=== PATIENT | male | born 1970 | race Caucasian/White ===

== ENCOUNTER 2021-10-05 12:35 | Emergency (ER) | payer BC ==
[2021-10-05] MEDS ORDERED: Lactated Ringer's 1,000 ML ONE (13:09)
[2021-10-05] MEDS ORDERED: Acetaminophen 500 MG TAB ONE (13:09)
[2021-10-05 13:34] LABS: #Basophils 0.1 thou/uL (0.0-0.2); #Lymphocytes 0.3 thou/uL (1.20-3.40); #Monocytes 0.4 thou/uL (0.11-0.59); #Neutrophils 12.3 thou/uL (1.40-6.50); %Eosinophils 0.2 % (0.0-10.0); %Lymphocytes 2.1 % (21.0-51.0); %Monocytes 3.4 % (0.0-10.0); %Neutrophils 93.3 % (42.0-75.0); Hemoglobin 18.7 g/dL (14.0-18.0); Mean Corpuscular HGB CONC 32.6 g/dL (32.0-36.0); Mean Corpuscular Volume 92.1 fL (78.0-98.0); Mean Platelet Volume 6.8 fL (7.4-10.4); Platelet Count 311 thou/uL (130-400); RBC Distribution Width 11.8 % (11.5-14.5); Red Blood Cell (RBC) Count 6.24 mill/uL (4.70-6.10); White Blood Cell (WBC) Count 13.1 thou/uL (4.8-10.8)
[2021-10-05 13:48] LABS: ALT (SGPT) 100 U/L (8-55); AST (SGOT) 66 U/L (5-34); Albumin 4.5 g/dL (3.5-5.0); Alkaline Phosphatase 100 U/L (40-110); Anion Gap 17 mmol/L (10-20); BUN (Urea Nitrogen) 19 mg/dL (8.4-25.7); Bilirubin, Total 1.2 mg/dL (0.2-1.2); Calc. Creatinine Clearance 0 mL/min (70-130); Calcium 8.9 mg/dL (7.8-10.44); Carbon Dioxide 18 mmol/L (22-29); Chloride 104 mmol/L (98-107); Globulin 2.8 g/dL (2.4-3.5); Glucose 106 mg/dL (70-105); Lipase 15 U/L (8-78); Magnesium 1.5 mg/dL (1.6-2.6); Potassium 4.7 mmol/L (3.5-5.1); Protein, Total 7.3 g/dL (6.0-8.3); Sodium 134 mmol/L (136-145)
[2021-10-05] MEDS ORDERED: Morphine 4 MG/ML VIAL ONE (13:53)
[2021-10-05] MEDS ORDERED: Magnesium 2 GM/50 ML BAG (IN WATER) ONE (13:53)
[2021-10-05 15:15] LABS: Bilirubin Negative (Negative); Blood, Urine Negative (Negative); Clarity Clear (Clear); Glucose, Urine (Dipstick) Negative (Negative); Ketone, Urine Negative (Negative); Leukocyte Negative (Negative); Nitrite Negative (Negative); Protein, Urine (Dipstick) Negative (Neg-Trace); Urobilinogen 0.2 mg/dL (Less than 2)
== END 2021-10-05 17:16 | disposition home or self-care (01) ==
LOC: MADERS 12:35
DX: M54.50 Low back pain, unspecified (principal); E86.0 Dehydration; K76.0 Fatty (change of) liver, not elsewhere classified; R19.7 Diarrhea, unspecified; E83.42 Hypomagnesemia; E87.2 Acidosis; R74.01 Elevation of levels of liver transaminase levels; R00.0 Tachycardia, unspecified; I10 Essential (primary) hypertension; K21.9 Gastro-esophageal reflux disease without esophagitis; F17.210 Nicotine dependence, cigarettes, uncomplicated; Z87.442 Personal history of urinary calculi; Z79.899 Other long term (current) drug therapy
CPT/HCPCS: 71275; 74174; 76705; 80053; 81003; 83605; 83690; 83735; 84484; 85025; 93005; 94760; 96365; 96375; J2270; J3475; J7120